=== PATIENT | female | born 1995 | race Caucasian/White ===

== ENCOUNTER 2019-04-20 19:04 | Emergency (ER) | payer BC, MEDICAID ==
--- NOTE | 2019-04-20 20:39 | EDM.PDOC ---
ED HPI GENERAL MEDICAL PROBLEM - General Chief Complaint: Laceration Stated Complaint: LACERATION Time Seen by Provider: 04/20/19 19:53 Source of Information: Reports: Patient, RN, Significant Other History Limitations: Reports: No Limitations - History of Present Illness INITIAL COMMENTS - FREE TEXT/NARRATIVE: 23 yr female presents with laceration to palm side of left hand. She was pitting an Avocado and the knife slipped and cut the hand. Bleeding is controlled with dry dressing. States tetanus a few years prior. Pt is alert, talkative and ambulatory with a friend. States home in [place], [place] and here visiting and doing some fishing. Left Hand Pain Score (Numeric/FACES): 4 ED ROS GENERAL - Review of Systems Review Of Systems: See Below Constitutional: Reports: No Symptoms HEENT: Denies: Hearing Loss, Vision Change Respiratory: Reports: No Symptoms Cardiovascular: Reports: No Symptoms GI/Abdominal: Reports: No Symptoms Musculoskeletal: Reports: No Symptoms, Other (moving fingers well) Skin: Reports: Other (cut to left palm from pitting avocado) Neurological: Reports: No Symptoms. Denies: Numbness, Tingling ED EXAM, SKIN/RASH Exam: See Below Exam Limited By: No Limitations General Appearance: Alert, No Apparent Distress Ears: Hearing Grossly Normal Nose: Normal Inspection Throat/Mouth: Normal Inspection Head: Atraumatic, Normocephalic Neck: Full Range of Motion Respiratory/Chest: No Respiratory Distress Extremities: Normal Inspection, Normal Range of Motion, Other (good finger to thumb touch/ROM) Neurological: Alert, Oriented, Normal Cognition, Other (good sensation to tips of fingers and thumb with palpation) Psychiatric: Normal Affect, Normal Mood, Tearful Skin: Warm, Dry, Normal Color Location, Skin: Palms (laceration of left palm, 1 cm in length and superficial) Associated features: No: Warmth, Swelling Course - Vital Signs Last Recorded V/S: Last Vital Signs Temp 97.5 F 04/20/19 19:53 Pulse 99 04/20/19 19:53 Resp 18 04/20/19 19:53 BP 115/66 04/20/19 19:53 Pulse Ox 99 04/20/19 19:53 - Re-Assessments/Exams Free Text/Narrative Re-Assessment/Exam: 04/20/19 20:25 Left hand cleansed well with hibiclenz/water bath in sterile basin. Pt is tearful and states burning noted. Area rinsed with Nacl and dried. Durabond applied to wound, 2 layers used. Area is held together well, no bleeding and edges approximated well. Pt states some burning with application, but tolerated well. Recommend to keep area clean and dry for 24 hour, then may shower, no swimming or soaking of hand for the week. Durabond should slowly slough off in the week. No antibiotic oint or vaseline to area X 7 days. Starting next week, may use antibiotic oint to area bid. Telfa dressing may be applied and changed daily. RTC or PCP if any signs of infection noted. Check on tetanus vaccine tomorrow at home clinic. RTC tomorrow, if tetanus vaccine needs updated. Pt discharge in no acute distress to friend. Departure - Departure Time of Disposition: 20:30 Disposition: Home, Self-Care 01 Condition: Good Clinical Impression: Laceration - Discharge Information *PRESCRIPTION DRUG MONITORING PROGRAM REVIEWED*: Not Applicable *COPY OF PRESCRIPTION DRUG MONITORING REPORT IN PATIENT JASPER: Not Applicable Instructions: Laceration Care, Adult, [id number], Tissue Adhesive Wound Care , [id number] Referrals: PCP,None [Primary Care Provider] - Forms: ED Department Discharge Additional Instructions: Discharge home. Keep hand clean and dry. Do not shower for 24 hours to let glue completely dry. Keep a non-adherent dressing on, do not apply triple antibiotic until next 04/27/19. Tylenol and ibuprofen as directed for pain. Elevated the arm. Follow up with your primary provider. Check on tetanus vaccine. Call or return to the ER if you have any questions or concerns. - Assessment/Plan Plan: Left hand cleansed well with hibiclenz/water bath in sterile basin. Pt is tearful and states burning noted. Area rinsed with Nacl and dried. Durabond applied to wound, 2 layers used. Area is held together well, no bleeding and edges approximated well. Pt states some burning with application, but tolerated well. Recommend to keep area clean and dry for 24 hour, then may shower, no swimming or soaking of hand for the week. Durabond should slowly slough off in the week. No antibiotic oint or vaseline to area X 7 days. Starting next week, may use antibiotic oint to area bid. Telfa dressing may be applied and changed daily. RTC or PCP if any signs of infection noted. Check on tetanus vaccine tomorrow at home clinic. RTC tomorrow, if tetanus vaccine needs updated. Pt discharge in no acute distress to friend. May use Tylenol as needed for relief of pain.
== END 2019-04-20 20:32 | disposition home or self-care (01) ==
LOC: LB.ED 19:04
DX: S61.412A Laceration without foreign body of left hand, initial encounter (principal); W26.0XXA Contact with knife, initial encounter
CPT/HCPCS: 12001; 99282